=== PATIENT | female | born 1955 | race Caucasian/White ===

== ENCOUNTER 2018-10-20 10:28 | Day surgery (SDC) | payer MEDICARE, OTHER ==
[~2018-10-20] VITALS: Ht 165.1 cm; Wt 77.0 kg
[2018-10-20 11:43] VITALS: BP 176/82; PULSE 85; RESP 18
--- NOTE | 2018-10-20 11:46 | PREAC ---
Date/Time of Note Date/Time of Note DATE: 10/20/18 TIME: 11:45 Anesthesia Eval and Record Evaluation Time Pre-Procedure Interview DATE: 10/20/18 TIME: 11:45 Age 63 Sex female NPO: 8 hrs Preoperative diagnosis abd pain Planned procedure egd, colonoscopy Past Medical History Past Medical History: Includes Cardio: HTN, Dyslipidemia Endo: Hypothyroid Musculoskeletal: Osteoarthritis Renal: CKD GI: GERD Heme: Anemia Psych: Anxiety Surgery & Anesthesia Issues No known issue Meds Anticoagulation: No Beta Bennett within 24 hr: No Reason Beta Bennett not given: Pt. not on B-Bennett Meds reviewed: Yes Allergies Allergies Reviewed: Yes Labs/Studies Labs Reviewed: Reviewed by anesthesiologist test: Negative Studies: ECG Pre-procedure Exam Airway: Adequate mouth opening, Adequate thyromental dist Mallampati: Mallampati II Teeth: Normal Lung: Normal Heart: Normal ASA Physical Status ASA physical status: 3 Emergency: None Planned Anesthetic General/MAC: MAC Pre-operative Attestations Prior to commencing anesthesia and surgery, the patient was re-evaluated, there was verification of: *The patient's identity *The results of appropriate recent lab work and preoperative vital signs *The above evaluation not changing prior to induction *Anesthetic plan, risk benefits, alternative and complications discussed with patient/family; questions answered; patient/family understands, accepts and wishes to proceed. CARMELO SANTOS Oct 20, 2018 11:46
[2018-10-20] MEDS ORDERED: PROPOFOL 40 ML ONE (11:50)
[2018-10-20 11:55] VITALS: Ht 165.1 cm; Wt 77.0 kg
[2018-10-20] MEDS ORDERED: CELEBREX (12:06)
[2018-10-20] MEDS ORDERED: VITAMIN B6 (12:06)
[2018-10-20] MEDS ORDERED: VITAMIN B12 (12:06)
[2018-10-20] MEDS ORDERED: DIAMOX (12:07)
[2018-10-20] MEDS ORDERED: COQ10 (12:07)
[2018-10-20] MEDS ORDERED: FISH OIL (12:08)
[2018-10-20] MEDS ORDERED: EXELON PATCH (12:08)
[2018-10-20] MEDS ORDERED: FOSAMAX (12:09)
[2018-10-20] MEDS ORDERED: FOLIC ACID (12:09)
[2018-10-20] MEDS ORDERED: LEVOTHYROXINE (12:10)
[2018-10-20] MEDS ORDERED: LIPITOR (12:10)
[2018-10-20] MEDS ORDERED: LINZESS (12:11)
[2018-10-20] MEDS ORDERED: LISINOPRIL (12:12)
[2018-10-20] MEDS ORDERED: MELATONIN (12:13)
[2018-10-20] MEDS ORDERED: TRYPTOPHAN (12:13)
[2018-10-20] MEDS ORDERED: PROCARDIA XL (12:14)
[2018-10-20] MEDS ORDERED: PEPCID (12:14)
[2018-10-20] MEDS ORDERED: TOVIAZ (12:15)
[2018-10-20] MEDS ORDERED: TUMERIC (12:17)
[2018-10-20] MEDS ORDERED: UBIQUINOL (12:18)
[2018-10-20] MEDS ORDERED: TUMS (12:18)
[2018-10-20] MEDS ORDERED: VENLAFAXINE (12:18)
[2018-10-20] MEDS ORDERED: VITAMIN D3 (12:18)
[2018-10-20] MEDS ORDERED: ZYRTEC (12:19)
[2018-10-20 12:35] VITALS: BP 130/63; PULSE 80; RESP 20
[2018-10-20 12:45] VITALS: BP 145/74; PULSE 86; RESP 20
[2018-10-20 13:01] VITALS: BP 149/84; PULSE 90; RESP 20
--- NOTE | 2018-10-20 18:41 | PAC ---
Date/Time of Note Date/Time of Note DATE: 10/20/18 TIME: 18:41 Post-Anesthesia Notes Post-Anesthesia Note Last documented vital signs Vital Signs Date Temp Pulse Resp B/P (MAP) Pulse Ox O2 O2 Flow FiO2 Time Delivery Rate 10/20/18 97.9 90 20 149/84 99 13:01 (105) 10/20/18 Room Air 11:43 Activity: WNL Respiratory function: WNL Cardiovascular function: WNL Mental status: Baseline Pain reasonably controlled: Yes Hydration appropriate: Yes Nausea/Vomiting absent: Yes CARMELO SANTOS Oct 20, 2018 18:41
== END 2018-10-20 13:07 | disposition home or self-care (01) ==
LOC: GIL 10:28
PROVIDERS: ATTEND Internal Medicine Gastroenterology
DX: K29.41 Chronic atrophic gastritis with bleeding (principal); R19.4 Change in bowel habit; K64.8 Other hemorrhoids; K57.31 Diverticulosis of large intestine without perforation or abscess with bleeding; I10 Essential (primary) hypertension; E03.9 Hypothyroidism, unspecified; E78.5 Hyperlipidemia, unspecified; K44.9 Diaphragmatic hernia without obstruction or gangrene
CPT/HCPCS: 88305; 88312